=== PATIENT | male | born 1945 | race Caucasian/White ===

== ENCOUNTER 2017-09-13 14:30 | Emergency (ER) | payer MEDICARE ==
[2017-09-13 15:35] LABS: #Monocytes 0.9 thou/uL (0.11-0.59); #Neutrophils 9.1 thou/uL (1.40-6.50); %Basophils 0.1 % (0.0-1.0); %Eosinophils 0.4 % (0.0-10.0); %Lymphocytes 16.4 % (21.0-51.0); %Monocytes 7.7 % (0.0-10.0); Hematocrit 46.8 % (42.0-52.0); Mean Platelet Volume 7.2 fL (7.4-10.4); Red Blood Cell (RBC) Count 4.89 mill/uL (4.70-6.10)
[2017-09-13 15:43] LABS: ALT (SGPT) 22 U/L (8-55); AST (SGOT) 20 U/L (5-34); Alkaline Phosphatase 43 U/L (40-150); Anion Gap 12 mmol/L (10-20); BUN (Urea Nitrogen) 25 mg/dL (8.4-25.7); Bilirubin, Total 0.5 mg/dL (0.2-1.2); Calc. Creatinine Clearance 0 mL/min (70-130); Carbon Dioxide 25 mmol/L (23-31); Chloride 105 mmol/L (98-107); Estimated GFR-MDRD 72; Globulin 2.9 g/dL (2.4-3.5); Protein, Total 7.2 g/dL (5.8-8.1)
[2017-09-13 15:48] LABS: Troponin I Less than 0.010 ng/mL (< 0.028)
== END 2017-09-13 17:57 | disposition home or self-care (01) ==
LOC: ERS 14:30
DX: I48.91 Unspecified atrial fibrillation (principal); I10 Essential (primary) hypertension; Z79.899 Other long term (current) drug therapy; Z79.82 Long term (current) use of aspirin
CPT/HCPCS: 80053; 82553; 84484; 85025; 93005; 96374

== ENCOUNTER 2017-09-14 15:37 | Outpatient (CLI) | payer MEDICARE | END 2017-09-14 15:38 | disposition home or self-care (01) | LOC: LABBT 15:37 | PROVIDERS: ATTEND Internal Medicine Cardiovascular Disease | DX: I48.0 Paroxysmal atrial fibrillation (principal) ==

== ENCOUNTER → 2017-09-15 | Day surgery (SDC) | payer MEDICARE ==
[2017-09-14 15:46] VITALS: BMI 31.4
[~2017-09-15] MED LIST: Lidocaine 1% PF 5 ML VIAL ONE; Propofol 1,000 MG/100 ML VIAL IV ONE; Propofol 200 MG/20 ML VIAL ONE
--- NOTE | 2017-09-15 08:10 | OP ---
INDICATION FOR PROCEDURE: A 72-year-old patient with intermittent atrial fibrillation who presented to the office yesterday with symptomatic atrial fibrillation. He had just started the atrial fibrill ation less than 24 hours prior to being seen in the office. He was started on Eliquis and was advise d to undergo an early cardioversion of his atrial fibrillation back to sinus rhythm. He was taken to the recovery area where he underwent short acting propofol and underwent successful cardioversion of the atrial fibrillation back to normal sinus rhythm with the heart rate in the 40s-50s, which is nor mal for this gentleman. Normally, he has a slow heart rate at home. There were no complications or difficulties encountered. With one attempt at 200 joules, he was successfully cardioverted back to n ormal sinus rhythm.
--- NOTE | 2017-09-15 10:23 | DIS ---
This is an outpatient procedure for electrical cardioversion of atrial fibrillation. OTHER DIAGNOSES: Include hypercholesterolemia, hypertension. DISCHARGE DIAGNOSES: Include hypercholesterolemia, hypertension. PROCEDURE: Electrical cardioversion of atrial fibrillation back to sinus rhythm. DISCHARGE MEDICATIONS: Include Eliquis 5 mg b.i.d., aspirin 81 mg daily, Spirulina 300 mg daily, dic lofenac sodium gel 4 grams 3 times daily, doxycycline 100 mg b.i.d., Multaq 400 mg b.i.d., Flonase na haylee spray as needed, glucosamine capsules 2 capsules daily, methylprednisolone 4 mg as directed from previous medications, daily multivitamins, Naprosyn as needed, saw palmetto and Zocor 10 mg q.p.m. FOLLOWUP: His followup will be with me in 4-5 days in the office and he will maintain sinus rhythm. He will follow up with Dr. Justen Hameed as his usual routine. PROCEDURE IN HOSPITAL: Electrical cardioversion of atrial fibrillation back to sinus rhythm. HOSPITAL COURSE: This is a very pleasant gentleman who presented to the office yesterday. He actual ly presented to the emergency room the day before and was found to be in atrial fibrillation with rap id ventricular response. He was seen in the office the following day continued to be in atrial fibri llation. He had been on Multaq. Recently, he has had an upper respiratory tract infection and has b een on steroids as well as doxycycline and has also been taking nonsteroidals and he was back in atri al fibrillation, the rate was in the 60s-70s, was well controlled; however, earlier he has had increa sed heart rate in the emergency room. He was given diltiazem for good rate control. Actually in the office, his heart rate was in the 80s. Normally his heart rate is in the 40s-50s at home. He did not have tachycardia in the past. He is still with the atrial fibrillation. He is very aware when t he atrial fibrillation started, even the early onset and also he has symptomatic problems with the at rial fibrillation and not feeling very well. He was advised to undergo electrical cardioversion lucas ier. He is anxious, low risk CHADS 2 score, level 1 or 2 and he had been started on Eliquis in the o ffice just to decrease the risk of embolic phenomena and once he was converted back to sinus rhythm, he was taken to the lab today to the outpatient procedure and he underwent electrical cardioversion o f the atrial fibrillation in one attempt at 200 joules without complications or difficulties. At the end of the procedure, his heart rate was in the 50s and shows sinus rhythm. If he remains stable, h e will be discharged home in the next 1-2 hours and I will see him back in the office early next week and treatment remains maintaining sinus rhythm. We will also consider electrophysiological consulta tion for possible ablation of the atrial fibrillation.
== END ==
LOC: CCL 05:51
PROVIDERS: ATTEND Internal Medicine Cardiovascular Disease
DX: I48.91 Unspecified atrial fibrillation (principal); I25.10 Atherosclerotic heart disease of native coronary artery without angina pectoris; E78.5 Hyperlipidemia, unspecified; I10 Essential (primary) hypertension; Z79.01 Long term (current) use of anticoagulants; Z79.899 Other long term (current) drug therapy; Z90.49 Acquired absence of other specified parts of digestive tract; Z98.890 Other specified postprocedural states
CPT/HCPCS: 92960; J2001; J2704

== ENCOUNTER 2017-11-02 09:34 | Outpatient (CLI) | payer MEDICARE ==
[~2017-11-02 09:34] MED LIST changes: +Iopamidol 370 76% 100 ML VIAL ONE; -Lidocaine 1% PF 5 ML VIAL ONE; -Propofol 1,000 MG/100 ML VIAL IV ONE; -Propofol 200 MG/20 ML VIAL ONE
--- NOTE | 2017-11-02 11:31 | CT ---
LIMITED CT CHEST WITHOUT CONTRAST LIMITED CT ANGIO CHEST WITH IV CONTRAST AND 3D POSTPROCESSING: HISTORY: Shortness of breath, atrial fibrillation. PROCEDURE: Evaluation for ablation. FINDINGS: The cardiac and coronary parts of the exam have been interpreted by the association executive. Please see car diologist's report. There are vascular calcifications without aneurysmal dilatation of the thoracic aorta. No pleural or pericardial effusions are seen. There is small area of focal patchy consolidation in the left lung base anteriorly. The possibility of this representing pneumonia cannot be excluded. There are degenerative changes in the spine. POS: [facility]
== END 2017-11-02 09:35 | disposition home or self-care (01) ==
LOC: CT 09:34
PROVIDERS: ATTEND Internal Medicine Cardiovascular Disease
DX: I48.0 Paroxysmal atrial fibrillation (principal)
CPT/HCPCS: 71275; 82565

== ENCOUNTER 2017-11-06 05:54 | Observation (INO) | payer MEDICARE ==
[2017-11-06] MEDS ORDERED: Diprivan 20 ML ONE (06:39)
[2017-11-06] MEDS ORDERED: Fentanyl 100 MCG/2 ML VIAL ONE ×2 (06:39→12:32)
[2017-11-06] MEDS ORDERED: Propofol 500 MG/50 ML VIAL ONE (06:39)
[2017-11-06 07:42] LABS: #Eosinphils 0.4 thou/uL (0.0-0.7); #Lymphocytes 1.4 thou/uL (1.20-3.40); #Monocytes 0.6 thou/uL (0.11-0.59); #Neutrophils 3.5 thou/uL (1.40-6.50); %Basophils 0.6 % (0.0-1.0); %Eosinophils 6.2 % (0.0-10.0); %Lymphocytes 24.4 % (21.0-51.0); %Monocytes 9.4 % (0.0-10.0); %Neutrophils 59.5 % (42.0-75.0); Hemoglobin 14.8 g/dL (14.0-18.0); Mean Corpuscular HGB CONC 33.6 g/dL (32.0-36.0); Mean Corpuscular Hemoglobin 31.8 pg (27.0-31.0); Mean Corpuscular Volume 94.8 fl (80.0-94.0); Mean Platelet Volume 7.4 fL (7.4-10.4); Platelet Count 251 thou/uL (130-400); RBC Distribution Width 12.4 % (11.5-14.5); Red Blood Cell (RBC) Count 4.64 mill/uL (4.70-6.10); White Blood Cell (WBC) Count 5.9 thou/uL (4.8-10.8)
[2017-11-06 07:59] LABS: PTT 32.1 SEC (22.9-36.1); Prothrombin Time 13.7 SEC (12.0-14.7)
[2017-11-06 08:07] LABS: Anion Gap 14 mmol/L (10-20); BUN (Urea Nitrogen) 29 mg/dL (8.4-25.7); Calc. Creatinine Clearance 96 mL/min (70-130); Calcium 9.4 mg/dL (7.8-10.44); Carbon Dioxide 23 mmol/L (23-31); Chloride 106 mmol/L (98-107); Estimated GFR-MDRD 72; Glucose 96 mg/dL (83-110); Potassium 4.2 mmol/L (3.5-5.1); Sodium 139 mmol/L (136-145)
[2017-11-06] MEDS ORDERED: Heparin 10,000 UNITS/1 ML VIAL ONE ×2 (09:21→11:42)
[2017-11-06] MEDS ORDERED: Isoproterenol 0.2 MG/1 ML AMP ONE (11:01)
[2017-11-06] MEDS ORDERED: Heparin 25,000 units/D5W 500 ML ONE (11:42)
[2017-11-06] MEDS ORDERED: Promethazine HCl 25 MG/ML VIAL SLOW IVP PRN (13:58)
[2017-11-06] MEDS ORDERED: Meperidine HCl/PF 25 MG/ML VIAL SLOW IVP PRN (13:58)
[2017-11-06] MEDS ORDERED: Ondansetron HCl/PF 4 MG/2 ML Vial IVP PRN ×2 (13:58→17:41)
[2017-11-06] MEDS ORDERED: Protamine Sulfate 50 MG/5 ML VIAL ONE (14:05)
[2017-11-06] MEDS ORDERED: Furosemide 40 MG/4 ML VIAL ONE (14:11)
--- NOTE | 2017-11-06 15:21 | OP ---
DATE OF PROCEDURE: 11/06/2017 PROCEDURE: Atrial fibrillation ablation. REFERRING PHYSICIAN: Dr. Cyndy Carvalho REASON FOR PROCEDURE: Mr. Doll is a 72-year-old male with prior history of paroxysmal atrial fibrillation, previously on Multaq, now had recurrences and required cardioversion on 09/15/2017, he is here. He is at normal LV function. Otherwise, he is anticoagulated with Eliquis adequately. He is here for pulmonary venous ablation procedure. PROCEDURE: The patient received deep sedation by Anesthesia specialist. After adequate level of sedation achieved and the left and right femoral venous area was prepped, draped and anesthetized using subcutaneous lidocaine under ultrasound guidance, the left and right femoral veins were cannulated and an 11 [place] sheath was introduced into the left femoral vein. Through this, an ice catheter was advanced to the right atrium, transseptal and hemodynamic monitoring. Via a long sheath a duodeca cahteter was advanced from the left femoral vein to cannulate the CS and the right atrium. Following that the right femoral vein was cannulated with the help of SL-1 catheter transseptal puncture was performed under hemodynamic monitoring. Heparin was used throughout to keep ACT over 350. After the case Over a wire, the SL-1 after transseptal was exchanged for a Agilis sheath and SL -1 was used for a second transseptal catheterization. Following that a dual Decapolar Lasso catheter was advanced to the left atrium and a Thermodilution SmartTouch catheter was also used for ablation. A 3D mapping of the left atrium obtained and pulmonary venous isolation was performed with the ablation catheter. Following that, after isuprel was used and no recurrences of conduction ascertained. Following that, the basic EP study was performed, demonstrating central retrograde VA conduction with VA Wenckebach was obtained at 400 milliseconds. Central retrograde VA conduction was seen, no accessory pathway was documented, antegrade conduction block was achieved. No dual AV tg physiology was seen. Burst pacing did reinduce atrial fibrillation. Additional lines at the roof and the base of the posterior wall were placed. Pt remained in atrial fibrillation. The base of the ;left atrium was also ablated. eventually thre atrial fib was cardioverted after 150mg of amiodarone also given. Patient remained in sinus rhythm after. A total of 41 lesions were delivered with total RF time if 19.7minutes. At the end of the case no pericardial effusion documented with ICE catheter. CONCLUSION: 1. Successful pulmonary venous isolation procedure. 2. Normal AV Conduction, no evidence of dual AV tg physiology or accessory pathway. Plan routine Postop care and follow up. YIFAND
[2017-11-06] MEDS ORDERED: PHENYLEPHRINE-NS 100 MCG/ML 10 ML SYRINGE ONE (16:43)
[2017-11-06] MEDS ORDERED: Propofol 200 MG/20 ML VIAL ONE (16:43)
[2017-11-06] MEDS ORDERED: Dexamethasone 20 MG/5 ML VIAL ONE (16:43)
[2017-11-06] MEDS ORDERED: Ondansetron HCl/PF 4 MG/2 ML Vial ONE (16:43)
[2017-11-06] MEDS ORDERED: Protamine Sulfate 250 MG/25 ML VIAL ONE (16:43)
[2017-11-06] MEDS ORDERED: Lidocaine 1% PF 5 ML VIAL ONE (16:43)
[2017-11-06] MEDS ORDERED: Glycopyrrolate 0.2 MG/ML 5 ML SYRINGE ONE (16:43)
[2017-11-06] MEDS ORDERED: Heparin 30,000 units/30 ml VIAL ONE (16:43)
[2017-11-06] MEDS ORDERED: Morphine 4 MG/ML VIAL ONE ×2 (17:09→20:16)
[2017-11-06] MEDS ORDERED: Bisacodyl 5 MG TAB PO PRN (17:41)
[2017-11-06] MEDS ORDERED: Temazepam 15 MG CAP PO PRN (17:41)
[2017-11-06] MEDS ORDERED: Silver Sulfadiazine 1% Cream 50 GM JAR TOP PRN (17:41)
[2017-11-06] MEDS ORDERED: Acetaminophen 325 MG TAB PO PRN (17:41)
[2017-11-06] MEDS ORDERED: Bisacodyl 10 MG SUPP PR PRN (17:41)
[2017-11-06] MEDS ORDERED: traMADol HCl 50 MG TAB PO PRN (17:41)
[2017-11-06] MEDS ORDERED: Mag-Al 1200 mg/1200 mg/30 ML UDCUP PO PRN (17:41)
[2017-11-06] MEDS ORDERED: Nitroglycerin 0.4 MG TAB (25 Tab Bottle) SL PRN (17:41)
[2017-11-06] MEDS ORDERED: diphenhydrAMINE 25 MG CAP PO PRN (17:41)
[2017-11-06] MEDS ORDERED: VOLTAREN TOP PRN (17:45)
[2017-11-06] MEDS ORDERED: SALONPAS TOP PRN (17:48)
[2017-11-06] MEDS ORDERED: Morphine 4 MG/ML VIAL SLOW IVP PRN (17:58)
[2017-11-06] MEDS ORDERED: Morphine 4 MG/ML VIAL SLOW IVP SCH ×2 (18:00)
[2017-11-06] MEDS ORDERED: Lidocaine 2% Jelly 5 ML TUBE ONE (20:05)
[2017-11-06] MEDS ORDERED: Simvastatin 20 MG TAB PO SCH (21:00)
[2017-11-06] MEDS ORDERED: Apixaban 5 MG TAB PO SCH ×2 (21:00)
[2017-11-06] MEDS ORDERED: SAW PALMETTO FRUIT PO SCH (21:00)
[2017-11-06 22:20] VITALS: BMI 33.1
[2017-11-06] MEDS ORDERED: Docusate 100 MG CAP PO SCH (22:30)
[2017-11-06] MEDS ORDERED: Tamsulosin HCl 0.4 MG CAP PO SCH (22:30)
[2017-11-06] MEDS: Fluticasone Propionate Nasal Spray 16 gm Bottle NASAL SCH (23:55)
[2017-11-06] MEDS: Azelastine 137 MCG/Spray 30 ML NS SCH (23:55)
[2017-11-07 08:07] LABS: #Lymphocytes 1.4 thou/uL (1.20-3.40); #Monocytes 1.1 thou/uL (0.11-0.59); #Neutrophils 9.8 thou/uL (1.40-6.50); %Basophils 0.1 % (0.0-1.0); %Eosinophils 0.3 % (0.0-10.0); %Lymphocytes 11.1 % (21.0-51.0); %Monocytes 8.8 % (0.0-10.0); %Neutrophils 79.7 % (42.0-75.0); Hemoglobin 13.8 g/dL (14.0-18.0); Mean Corpuscular HGB CONC 33.2 g/dL (32.0-36.0); Mean Corpuscular Hemoglobin 31.5 pg (27.0-31.0); Mean Corpuscular Volume 95.1 fl (80.0-94.0); Mean Platelet Volume 7.1 fL (7.4-10.4); Platelet Count 233 thou/uL (130-400); RBC Distribution Width 12.4 % (11.5-14.5); Red Blood Cell (RBC) Count 4.37 mill/uL (4.70-6.10); White Blood Cell (WBC) Count 12.2 thou/uL (4.8-10.8)
--- NOTE | 2017-11-07 08:22 | ULT ---
RENAL SONOGRAM: History: Hematuria. FINDINGS: The right kidney is 11.3 cm in length and the left 11.1 cm. Each has a normal sonographic appearance without evidence of mass, stone, or hydronephrosis. Urinary bladder is decompressed by a Liriano cathet er. IMPRESSION: 1. No significant abnormalities are demonstrated. POS: [facility]
[2017-11-07] MEDS ORDERED: Multivit, Therapeutic 1 TAB PO SCH (09:00)
[2017-11-07] MEDS ORDERED: Naproxen 500 MG TAB PO SCH (09:00)
[2017-11-07] MEDS ORDERED: GLUCOSAMINE COMPLEX PO SCH (09:00)
[2017-11-07] MEDS ORDERED: Tamsulosin HCl 0.4 MG CAP PO SCH (09:00)
[2017-11-07] MEDS ORDERED: Aspirin 81 mg Enteric Coated Tablet PO SCH (09:00)
[2017-11-07] MEDS ORDERED: SPIRULINA PO SCH (09:00)
[2017-11-07] MEDS ORDERED: Docusate 100 MG CAP PO SCH (09:00)
[2017-11-07] MEDS ORDERED: Loratadine 10 MG TAB PO SCH (09:00)
[2017-11-07] MEDS ORDERED: Furosemide 20 MG/2 ML VIAL SLOW IVP PRN (09:29)
[2017-11-07] MEDS ORDERED: Potassium Chloride 20 MEQ TAB PO PRN (09:30)
[2017-11-07] MEDS: Azelastine 137 MCG/Spray 30 ML NS SCH (09:46)
[2017-11-07] MEDS: Fluticasone Propionate Nasal Spray 16 gm Bottle NASAL SCH (09:48)
[2017-11-07] MEDS: Apixaban 5 MG TAB PO SCH ×2 (11:41→13:54)
[2017-11-07 12:46] VITALS: BP 140/67; TEMP 98.4
[2017-11-07 13:49] LABS: Bacteria/HPF 2+ HPF (None Seen); Hyaline Casts/LPF NONE SEEN LPF (0-3 Hyaline); RBC/HPF GREATER THAN 50-TNTC HPF (0-3); Squamous Epithelial 0-3 HPF (0-3)
[2017-11-07] MEDS ORDERED: Furosemide 20 MG TAB PO PRN (14:15)
--- NOTE | 2017-11-07 15:04 | CON ---
DATE OF CONSULTATION: 11/07/2017 REASON FOR CONSULTATION: Consultation was requested for hematuria and urinary retention. HISTORY OF PRESENT ILLNESS: The patient is a 72-year-old male who is not previously followed by urologist, but did have difficulty with what sounds like standard BPH symptoms and was on saw palmetto and tamsulosin prior to admission. He had no episodes of retention, no urinary tract infections, no stones and no hematuria prior to this episode. He was undergoing a cardiac ablation procedure and had an indwelling catheter that was noted to have hematuria. It was removed after the procedure and he was unable to void and was scanned for greater than a liter. The catheter was put back in. The nurse did have to use a coude after a regular catheter failed. PAST MEDICAL HISTORY: Atrial fibrillation, hypertension, high cholesterol, coronary artery disease and cervical disk disease. He also had melanoma which was surgically excised from his back approximately 3-4 years ago. PAST SURGICAL HISTORY: Significant for appendix, tonsils and the melanoma. ALLERGIES: None. SOCIAL HISTORY: He does not drink, smoke or use drugs and he has no past history of smoking. MEDICATIONS: Glucosamine chondroitin, multivitamin, simvastatin, Multaq 400 mg twice a day, aspirin daily, Saw Gruetli Laager, Flomax once a day, Mucinex as needed, Flonase as needed, Voltaren transdermal, Eliquis 5 mg, Zyrtec and naproxen 250 b.i.d. REVIEW OF SYSTEMS: Reveals he has some peripheral neuropathy and neck pain secondary to cervical disk issues. He has been screened with a PSA for prostate cancer, but not a digital rectal exam. He had a colonoscopy in 2013 that showed polyps. He gets these every 5 years. He has not been constipated up until this stay. He has no chest pain or shortness of breath or cough. FAMILY HISTORY: Significant for dad dying of stroke in his 80s. Mom of a stroke close to 90. Brother is still alive at 75. Brother also had melanoma as well as prostate cancer which was already treated. PHYSICAL EXAMINATION: VITAL SIGNS: Temperature 99.1, heart rate 57, blood pressure 120/60, satting 94 % on room air. GENERAL: He is alert and oriented and appropriate and in no distress. HEENT: No scleral icterus. NECK: No obvious JVD. CARDIOVASCULAR: Regular rate and rhythm. There was a systolic ejection murmur noted. LUNGS: Clear to auscultation bilaterally. ABDOMEN: Soft, nondistended, nontender. : He was circumcised with a Liriano in place. His testes are descended bilaterally without masses. RECTAL: Digital rectal exam shows an enlarged prostate, smooth and symmetric without nodules or induration. EXTREMITIES: He had no obvious lower extremity edema. Liriano catheter was draining yellow urine in the tubing. LABORATORY DATA: CBC was within normal limits. BUN and creatinine were 29 and 1.02. I do not have any PSAs and there was no urinalysis noted. There was no imaging to review of the kidneys, so I ordered a renal ultrasound. This was reviewed personally; it revealed no stones, hydronephrosis or masses. The bladder was also imaged in one portion and revealed that it was decompressed without any obvious masses or clots. ASSESSMENT AND PLAN: 72-year-old male with benign prostatic hypertrophy and hematuria, most likely related to this; however, he still does need to have a cystoscopy to complete the workup. This can be done as an outpatient. Based on his bladder distention to over 1300, once the catheter was finally placed, I would leave it in at least 48 hours. We discussed this versus leaving it in a week and ultimately will remove it as an outpatient at about 60 hours after it was placed which would be . I reviewed this with him and his and the nurse and she will instruct them on how to do that himself. If there is any concern regarding emptying, he can follow up in the office to determine that or have the catheter replaced. Otherwise, he should follow up in the office for Uroflow and cystoscopy. He should continue the tamsulosin, but increase this to twice a day. He can continue the Saw Gruetli Laager, but we discussed I would probably ultimately change this to finasteride based on our future findings in the office. I spoke with Dr. Xavier in detail regarding the gross hematuria and his Eliquis. His standard of care would to be on this for the next 3 months continuously. We discussed how since the urine is currently clear, will get back on this for now and watch the urine carefully. He should avoid any heavy lifting or straining over the next week and ensure no catheter trauma. I will work to get this out sooner than later () with the hopes that he will be able to void by then. I called the patient back and relayed this information as well (after speaking with Dr. Xavier). PETER
[2017-11-07] MEDS ORDERED: Ciprofloxacin 500 MG TAB PO SCH (21:00)
--- NOTE | 2017-11-08 06:52 | DIS ---
ADMITTING DIAGNOSIS: Paroxysmal atrial fibrillation. REASON FOR HOSPITALIZATION: Mr. Doll was initially admitted on 11/06/2017 with the diagnosis of symptomatic paroxysmal atrial fibrillation. He has previously failed antiarrhythmic drug therapy with Multaq and previous cardioversions. He has been maintained on Eliquis for anticoagulation therapy. Despite antiarrhythmic drug therapy, he continued to have symptoms of palpitations, fatigue and tiredness. Today, he is here for this hospitalization. During this hospitalization, he underwent pulmonary venous antral isolation. Post-ablation, the patient has recovered well and did not have any problems post-procedure with the exception of some hematuria. Urology consult was done given the patient's urinary retention and hematuria. A Liriano catheter was placed. The patient will discharge home with and follow up with Urology for further instructions and removal later this week. At this time, the patient has not had any recurrence, bleeding or hematuria. He has had some external bleeding from the tip of his penis which is more likely just related to irritation and positioning of the catheter. Since ablation, the patient has had no recurrence of atrial fibrillation. On monitor, it is documented that he does have fairly frequent PACs and some ectopy, but no atrial fibrillation, and rates have been well controlled. The patient has not had any recurrence of palpitations, but does feel somewhat tired and fatigued post-procedure. DISCHARGE INSTRUCTIONS: Discharge instructions are on the computer. The patient is not to lift more than 10 pounds for 1 week and then has no activity restrictions. No soaking baths for 1 week. Groin access sites are stable and without hematoma. Instructions were given in the patient regarding monitoring for hematoma development. The discharge med rec has been completed. The patient was then given prescriptions for Lasix, potassium, ciprofloxacin for UTI for 3 days, Carafate and Protonix. The patient is to resume his Eliquis on full dose therapy immediately and monitor for additional signs of bleeding. This was discussed with the patient and his , both verbalized understanding and agreed with the plan. At this time, the patient will stop his Multaq for antiarrhythmic therapy and will follow up at the [facility] in 4-6 weeks. The patient is being discharged home in stable condition. Other than the urinary retention and hematuria immediately Postoperatively, the patient has not had any complications during his recovery. He has been up ambulating in the springer without event and generally is feeling well. DISCHARGE MEDICATION LIST: Includes Eliquis 5 mg p.o. b.i.d., aspirin 81 mg p.o. daily, Blue-Green Algae 500 mg taken at home, cetirizine 10 mg daily as needed for allergies, ciprofloxacin 500 mg p.o. b.i.d. x3 days for urinary tract infection, diclofenac sodium (Voltaren gel) 100-gram tube 4 grams TP t.i.d., fluticasone propionate 1 spray per naris b.i.d.; furosemide 20 mg p.o. 1 tab daily as needed for swelling or fluid retention including shortness of breath; glucosamine chondroitin 2 tabs p.o. b.i.d., Salonpas patch as needed, multivitamin daily, naproxen daily as needed, potassium chloride 20 mEq 1 tab daily as needed when taken with Lasix and also as directed prehospitalization, simvastatin 10 mg p.o. at bedtime, tamsulosin 0.4 mg p.o. daily, Protonix 40 mg p.o. daily for 1 month, and Carafate 1 gram p.o. q.6 hours x14 days. I was present at the time of discharge, examined the patient and agree wityh the plan. Dictated by BERT Magallon
== END 2017-11-07 15:38 | disposition home or self-care (01) ==
LOC: CCL 05:54 → 2SW 18:49 → CCL 22:47 → 2SW 22:47
PROVIDERS: ADMIT Internal Medicine Cardiovascular Disease; ATTEND Internal Medicine Cardiovascular Disease
DX: I48.0 Paroxysmal atrial fibrillation (principal); N40.0 Benign prostatic hyperplasia without lower urinary tract symptoms; I10 Essential (primary) hypertension; E78.00 Pure hypercholesterolemia, unspecified; I25.10 Atherosclerotic heart disease of native coronary artery without angina pectoris; M50.90 Cervical disc disorder, unspecified, unspecified cervical region; G62.9 Polyneuropathy, unspecified; Z85.820 Personal history of malignant melanoma of skin; Z86.010 Personal history of colon polyps; Z82.3 Family history of stroke; Z80.42 Family history of malignant neoplasm of prostate; Z79.01 Long term (current) use of anticoagulants; Z79.82 Long term (current) use of aspirin; Z79.899 Other long term (current) drug therapy; Z90.49 Acquired absence of other specified parts of digestive tract; Z90.89 Acquired absence of other organs; Z98.890 Other specified postprocedural states
CPT/HCPCS: 76770; 76942; 80048; 81015; 85025 ×2; 85347 ×2; 85610; 85730; 87086; 93005 ×2; 93613; 93622; 93623; 93656; 93662; C1730; C1731; C1732; C1759; C1769; G0378; 36415; 93010; J0282; J1100; J1644; J1940; J2001; J2270; J2405; J2704; J2720; J3010

== ENCOUNTER 2018-08-14 12:58 | Emergency (ER) | payer MEDICARE ==
[2018-08-14] MEDS ORDERED: Adenosine 6 MG/2 ML VIAL ONE (13:13)
[2018-08-14 13:40] LABS: #Basophils 0.1 thou/uL (0.0-0.2); #Eosinphils 0.3 thou/uL (0.0-0.7); #Lymphocytes 1.4 thou/uL (1.20-3.40); #Monocytes 0.5 thou/uL (0.11-0.59); #Neutrophils 4.9 thou/uL (1.40-6.50); %Basophils 0.9 % (0.0-1.0); %Eosinophils 3.6 % (0.0-10.0); %Lymphocytes 19.8 % (21.0-51.0); %Monocytes 7.3 % (0.0-10.0); %Neutrophils 68.3 % (42.0-75.0); Hemoglobin 14.9 g/dL (14.0-18.0); Mean Corpuscular HGB CONC 31.4 g/dL (32.0-36.0); Mean Corpuscular Hemoglobin 29.5 pg (27.0-31.0); Mean Corpuscular Volume 94.1 fL (78.0-98.0); Mean Platelet Volume 7.6 fL (7.4-10.4); Platelet Count 285 thou/uL (130-400); RBC Distribution Width 12.2 % (11.5-14.5); Red Blood Cell (RBC) Count 5.05 mill/uL (4.70-6.10); White Blood Cell (WBC) Count 7.2 thou/uL (4.8-10.8)
[2018-08-14 13:56] LABS: CKMB 2.2 ng/mL (0-6.6); Troponin I 0.019 ng/mL (< 0.028)
[2018-08-14 14:00] LABS: ALT (SGPT) 14 U/L (8-55); AST (SGOT) 15 U/L (5-34); Albumin 4.2 g/dL (3.4-4.8); Alkaline Phosphatase 38 U/L (40-150); Anion Gap 16 mmol/L (10-20); BUN (Urea Nitrogen) 20 mg/dL (8.4-25.7); Bilirubin, Total 0.6 mg/dL (0.2-1.2); CK (CPK) 71 U/L (30-200); Calc. Creatinine Clearance 0 mL/min (70-130); Calcium 8.8 mg/dL (7.8-10.44); Carbon Dioxide 18 mmol/L (23-31); Chloride 108 mmol/L (98-107); Estimated GFR-MDRD 53; Globulin 2.7 g/dL (2.4-3.5); Glucose 136 mg/dL (83-110); Lipase 32 U/L (8-78); Potassium 4.5 mmol/L (3.5-5.1); Protein, Total 6.9 g/dL (5.8-8.1); Sodium 137 mmol/L (136-145)
--- NOTE | 2018-08-14 14:10 | RAD ---
ONE VIEW CHEST: History: Chest pain Comparison: None FINDINGS: Lungs are clear. No pneumothorax or effusion. Cardiac silhouette and mediastinal contours are within normal limits. Degenerative disease left shoulder. IMPRESSION: No acute intrathoracic abnormality. No significant change. POS: [facility]
== END 2018-08-14 16:05 | disposition home or self-care (01) ==
LOC: ERS 12:58
DX: I47.1 Supraventricular tachycardia (principal); I48.91 Unspecified atrial fibrillation; I10 Essential (primary) hypertension
CPT/HCPCS: 36415; 71045; 80053; 82553; 83690; 84484; 85025; 93005; 94760; 96361; 96374; 96375; 96376; J0153

== ENCOUNTER 2018-11-18 15:31 | Inpatient (IN) | payer MEDICARE ==
[2018-11-18 16:01] LABS: #Lymphocytes 0.7 thou/uL (1.20-3.40); #Monocytes 0.4 thou/uL (0.11-0.59); #Neutrophils 8.9 thou/uL (1.40-6.50); %Eosinophils 0.3 % (0.0-10.0); %Monocytes 4.4 % (0.0-10.0); %Neutrophils 88.4 % (42.0-75.0); Hemoglobin 14.9 g/dL (14.0-18.0); Mean Corpuscular HGB CONC 34.2 g/dL (32.0-36.0); Mean Corpuscular Hemoglobin 32.1 pg (27.0-31.0); Mean Corpuscular Volume 93.8 fL (78.0-98.0); Mean Platelet Volume 7.4 fL (7.4-10.4); Platelet Count 280 thou/uL (130-400); Red Blood Cell (RBC) Count 4.62 mill/uL (4.70-6.10); White Blood Cell (WBC) Count 10.1 thou/uL (4.8-10.8)
--- NOTE | 2018-11-18 16:03 | RAD ---
PORTABLE AP CHEST: Date: 11/18/18 HISTORY: Patient feels as if heart is racing. COMPARISON: 08/14/18. FINDINGS: The cardiac silhouette and pulmonary vasculature are within normal limits. There is minimal linear at electasis at the left lung base. The lungs are otherwise clear. Degenerative changes are present in t he spine. There has been no interval change from the prior exam. IMPRESSION: No acute cardiopulmonary process. POS: [facility]
[2018-11-18 16:21] LABS: ALT (SGPT) 16 U/L (8-55); AST (SGOT) 17 U/L (5-34); Albumin 4.5 g/dL (3.4-4.8); Alkaline Phosphatase 49 U/L (40-150); Anion Gap 16 mmol/L (10-20); BUN (Urea Nitrogen) 25 mg/dL (8.4-25.7); Bilirubin, Total 0.5 mg/dL (0.2-1.2); Calc. Creatinine Clearance 0 mL/min (70-130); Calcium 9.5 mg/dL (7.8-10.44); Carbon Dioxide 22 mmol/L (23-31); Chloride 107 mmol/L (98-107); Estimated GFR-MDRD 50; Globulin 2.8 g/dL (2.4-3.5); Glucose 135 mg/dL (83-110); Potassium 4.4 mmol/L (3.5-5.1); Protein, Total 7.3 g/dL (5.8-8.1); Sodium 141 mmol/L (136-145)
[2018-11-18] MEDS ORDERED: Labetalol HCl 100 MG/20 ML VIAL SLOW IVP SCH (19:00)
[2018-11-18] MEDS ORDERED: Digoxin 0.5 MG/2 ML AMP ONE (19:57)
[2018-11-18] MEDS ORDERED: Apixaban 5 MG TAB PO SCH (21:30)
[2018-11-18] MEDS ORDERED: Ondansetron PF 4 MG/2 ML Vial IVP PRN (22:22)
[2018-11-18] MEDS ORDERED: Acetaminophen 325 MG TAB PO PRN (22:22)
[2018-11-18] MEDS ORDERED: Ondansetron ODT 4 MG TAB SL PRN (22:22)
[2018-11-19 01:18] VITALS: BMI 30.9
[2018-11-19] MEDS ORDERED: Fluticasone Propionate Nasal Spray 16 gm Bottle NASAL PRN ×2 (08:08→08:24)
[2018-11-19] MEDS ORDERED: Non-Formulary Item 1 EACH (Multivitamin [Daily Multiple Vitamin] 1 EACH) PO SCH (09:00)
[2018-11-19] MEDS: Apixaban 5 MG TAB PO SCH ×2 (09:27→21:10)
[2018-11-19] MEDS: Finasteride 5 MG TAB PO SCH (09:27)
[2018-11-19] MEDS: Aspirin 81 mg Enteric Coated Tablet PO SCH (09:27)
[2018-11-19] MEDS: Tamsulosin HCl 0.4 MG CAP PO SCH (09:28)
[2018-11-19] MEDS: Multivit, Therapeutic 1 TAB PO SCH (09:28)
[2018-11-19] MEDS ORDERED: Flecainide 50 MG TAB PO SCH (13:30)
--- NOTE | 2018-11-19 17:08 | CON ---
DATE OF CONSULTATION: 11/19/2018 This is an electrophysiology followup note. REFERRING PHYSICIAN: Dr. Justen Hameed. HISTORY OF PRESENT ILLNESS: I am seeing Mr. 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 His problems are: 1. Atypical atrial flutter. a. Prior history of persistent atrial fibrillation. b. Status post pulmonary venous isolation procedure in November 06, 2017 and redo ablation procedure in July 24, 2018, with re-isolation of the right superior posterior wall and right atrium and CS performed. c. Recurrent atrial arrhythmias with response to diltiazem. 2. History of baseline bradycardia versus Multaq in the past. 3. CHADS-VASc score of 3 with history of mild coronary artery disease on left heart catheterization in July 2007, but not significant lesions, also age, on Eliquis anticoagulation. 4. History of BPH. ALLERGIES: NONE. MEDICATIONS: At home included: 1. Fluticasone. 2. Simvastatin. 3. Multivitamin. 4. Eliquis 5 mg twice a day. 5. Aspirin. 6. Naproxen. 7. Tamsulosin. 8. Metoprolol succinate. 9. Diltiazem CD. 10. Finasteride. SUBJECTIVE: Mr. Doll has been doing well up overnight, started developing rapid heart rates up to 140 beats per minute noted. He did not get dizzy or did not lose consciousness. No angina noted. No fever, chills, or cough, but due to his lack of success to control his heart rate in the past, he decided to come into the ER. He was evaluated, found to be in an atrial arrhythmia, and IV diltiazem and Lopressor were given eventually that controlled this heart rate. He was subsequently admitted to the floor and I was consulted for the management. Currently, he is not having any chest pain. No fever, chills, or cough. No stroke-like symptoms. No neurological deficits. No PND or orthopnea. Rest of 12-point system otherwise unremarkable. PAST MEDICAL HISTORY: As above. SOCIAL HISTORY: The patient is smoking EtOH or drug abuse. FAMILY HISTORY: Not contributory. OBJECTIVE DATA: VITAL SIGNS: Blood pressure is 120/80, heart rate 111, respiratory rate 16, and temperature 97.7 degrees Fahrenheit. GENERAL: Alert and oriented man, in no apparent distress. NECK: Supple. Jugular veins not distended. CHEST: Coarse without crackles. HEART: Sounds are regular, but tachycardic. No murmur or gallop. ABDOMEN: Benign. Bowel sounds positive. EXTREMITIES: Lower extremities without edema, clubbing, or cyanosis. Pulses are adequate. NEUROLOGIC: The patient nonfocal. MUSCULOSKELETAL: Without joint swelling or deformity. SKIN: Without rash. DATABASE: The telemetry strips reviewed revealing atypical atrial flutter with positive deflections in V1, rates of 123 beats per minute. LABORATORY DATA: White cell count is 10.1, hemoglobin 14.9, platelet count is 280. Sodium 141, potassium 4.4, BUN is 25, and creatinine 1.39. Chest x-ray shows no acute cardiopulmonary process. ASSESSMENT AND PLAN: Mr. Doll is a very pleasant 73-year-old man with prior history of atrial arrhythmias. He underwent repeat ablation in June, but had recurrent episodes. He is back again with other recurrences of the atrial arrhythmias. We have discussed treatment options. I detailed the option for an antiarrhythmic agents and cardioversion versus redo ablation. We did discuss the potential chance for bradycardia on added antiarrhythmic agents as he had tendency for that in the past as well. At this point, he would prefer attempting medical therapy first before going for a third ablation and we will plan to start him on flecainide as he had no significant coronary artery disease is non-reasonable option, discussed pros and cons and he is willing to proceed. We will keep him without food for potential cardioversion in the morning. Chronic anticoagulation with Eliquis without interruption. Continue as is. Job ID: [id number] [id number]
[2018-11-19] MEDS ORDERED: Simvastatin 5 MG TAB PO SCH (21:00)
[2018-11-19] MEDS ORDERED: Non-Formulary Item 1 EACH (Simvastatin [Zocor] 10 MG) PO SCH (21:00)
[2018-11-19] MEDS: Flecainide 50 MG TAB PO SCH (21:08)
--- NOTE | 2018-11-20 08:20 | HP ---
CHIEF COMPLAINT: Palpitations. HISTORY OF PRESENT ILLNESS: This is a 73-year-old gentleman with a history of atrial fibrillation, atrial flutter. He has been followed by Dr. Carvalho and Dr. Xavier and Dr. Asif for Cardiology and Electrophysiology for the past several years. He has a history of two ablations on his heart to attempt to resolve his atrial dysrhythmia. For the past few years, he was last seen by electrophysiology in June of 2018 following another ablation. He had been doing well since that time. He has a recent upper respiratory infection with allergies and sinus problems, but denies taking any kind of stimulant decongestants. He was in his usual state of health this week and when yesterday at about 0145 hours he developed palpitations, which have continued. He states he exercised two days ago and heart rate got up to 133, but then resolved following that and was feeling fine when this episode occurred. His heart rate got up to 144 in the emergency department. He was given medicines including Cardizem and labetalol and his heart rate was able to come back down to the low 100s. He denies chest pain, shortness of breath, or palpitations. Denies weakness or falls or syncope. He is feeling at his baseline except for occasional episodes of palpitations at this time. PAST MEDICAL HISTORY: Atrial fibrillation, atrial flutter, BPH, hypertension, hyperlipidemia, and history of melanoma. PAST SURGICAL HISTORY: Appendectomy, tonsillectomy, and cardiac ablation x2. MEDICATIONS: Include; 1. Eliquis 5 mg b.i.d. 2. Cardizem 180 mg daily. 3. Tamsulosin 0.4 mg b.i.d. 4. Metoprolol 25 mg daily. 5. Finasteride 1 mg daily. 6. Aspirin 81 mg daily. 7. Simvastatin 10 mg daily. ALLERGIES: NO KNOWN DRUG ALLERGIES. SOCIAL HISTORY: He is . 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 Lives at home with his . FAMILY HISTORY: Father with CVA in his 80s. No other heart disease. IMMUNIZATIONS: Up-to-date. REVIEW OF SYSTEMS: As per the history of present illness. GENERAL: He denies any recent fevers or chills. He has had a recent upper respiratory infection. HEENT: No headache or visual changes. Chronic rhinitis, due to his allergies. CARDIAC: As per the history of present illness. PULMONARY: Denies cough, hemoptysis, or shortness of breath. GI: Denies nausea, vomiting, or abdominal pain. : Denies dysuria or hematuria. He does have a history of BPH. NEUROLOGIC: No weakness, seizures, or syncope. PHYSICAL EXAMINATION: VITAL SIGNS: Temperature 98.0, pulse of 109 to 126, respirations 16, blood pressure 125/91, and pulse ox is 95% on room air. GENERAL: He is awake and alert, in no acute distress. HEENT: Speech is clear. Mucosa is moist. NECK: Supple. HEART: Tachycardic. LUNGS: Clear. ABDOMEN: Soft. EXTREMITIES: No clubbing, cyanosis, or edema. 2+ peripheral pulses bilaterally. LABORATORY DATA: Sodium 141, potassium 4.4, chloride 107, CO2 of 22, BUN and creatinine 25 and 1.39 with a GFR of 50. Serum glucose of 135. AST and ALT are normal. Cardiac enzymes are negative. Troponin is 0.010. TSH 0.335. White blood cell count 10,000, hemoglobin and hematocrit 14.9 and 43.4, and platelets of 218. Chest x-ray showed no active disease. EKG reveals atrial flutter. Telemetry monitoring continues to be atrial flutter. ASSESSMENT AND PLAN: 1. This is a 73-year-old gentleman with a long history of atrial fibrillation, atrial flutter, now with episode of atrial flutter with rapid ventricular response. Seems to improved with medications including Cardizem and labetalol in the emergency department as well as increasing his metoprolol to 50 mg. Continues to have palpitations and his heart rate up into the 100s to 120s. We will consult Cardiology and Electrophysiology for further evaluation and possible med adjustments vs repeat ablation vs cardioversion 2. Hypertension, remained stable. We will continue current medications. 3. Hyperlipidemia. We will continue simvastatin. 4. Benign prostatic hyperplasia, stable. We will make adjustments as needed as an outpatient. Job ID: [id number] [facility]
--- NOTE | 2018-11-20 09:05 | PRG ---
DATE OF SERVICE: 11/20/2018 SUBJECTIVE: The patient is feeling well at this time. Appreciate the assistance with Electrophysiology and Cardiology. The patient states that he is not having any chest pains or shortness of breath. He did state he felt a little fatigue yesterday while walking. OBJECTIVE: VITAL SIGNS: Temperature 97.8, pulse of 99 to 104, respirations 19, blood pressure 146/89, and pulse ox is 95% on room air. GENERAL: He is awake and alert. No acute distress. Speech is clear. NECK: Supple. HEART: Regular rate and rhythm. LUNGS: Clear. ABDOMEN: Soft. EXTREMITIES: No edema. LABORATORY DATA: Reviewed. Cardiac enzymes are negative. EKG reveals atrial flutter. ASSESSMENT AND PLAN: 1. This is a 73-year-old gentleman with a history of atrial fibrillation and atrial flutter, status post ablation x2 and now admitted with atrial flutter with rapid ventricular response. Cardiology and Electrophysiology managing with plans of cardioversion today, he continued to have flecainide, metoprolol, and Eliquis for anticoagulation. 2. BPH is stable. 3. Hyperlipidemia. We will continue statin therapy. Job ID: [id number]
[2018-11-20] MEDS: Apixaban 5 MG TAB PO SCH (11:32)
[2018-11-20] MEDS: Aspirin 81 mg Enteric Coated Tablet PO SCH (11:32)
[2018-11-20] MEDS: Flecainide 50 MG TAB PO SCH (11:32)
[2018-11-20 12:05] VITALS: BP 143/92; TEMP 98.7
[2018-11-20] MEDS ORDERED: PROPOFOL 200 MG/20 ML VIAL ONE (15:48)
[2018-11-20] MEDS ORDERED: PROPOFOL 20 ML ONE (17:07)
[2018-11-20] MEDS: Finasteride 5 MG TAB PO SCH (17:32)
[2018-11-20] MEDS: Multivit, Therapeutic 1 TAB PO SCH (17:33)
[2018-11-20] MEDS: Tamsulosin HCl 0.4 MG CAP PO SCH (17:33)
--- NOTE | 2018-11-21 00:29 | OP ---
DATE OF PROCEDURE: 11/20/2018 This is an electrical cardioversion report. REASON FOR PROCEDURE: Mr. Doll is a 73-year-old man with prior history of atrial arrhythmias, prior atrial fibrillation ablation, now has sustained atypical atrial flutter with rapid rates, here for a planned cardioversion. The patient has been chronically anticoagulated with Eliquis without fail. DESCRIPTION OF PROCEDURE: The patient received propofol by Anesthesia specialist. After adequate level of sedation achieved, a synchronized 50 joule shock promptly converted back the patient to sinus rhythm. CONCLUSION: Successful cardioversion. PLAN: Start flecainide. Monitor rates. Consider decreasing diltiazem and metoprolol if bradycardia occurs. Also continue anticoagulation. For jail, consider left atrial ablation procedure. Job ID: [id number]
== END 2018-11-20 19:59 | disposition home or self-care (01) | DRG 310 ==
LOC: ERS 15:31 → 2SE 19:50
PROVIDERS: ADMIT Family Medicine; ATTEND Family Medicine
PROC: 5A2204Z Restoration of Cardiac Rhythm, Single (ICD-10-PCS; principal; 2018-11-18)
DX: I48.4 Atypical atrial flutter (principal); I48.1 Persistent atrial fibrillation; I25.10 Atherosclerotic heart disease of native coronary artery without angina pectoris; I10 Essential (primary) hypertension; E78.5 Hyperlipidemia, unspecified; N40.0 Benign prostatic hyperplasia without lower urinary tract symptoms; Z79.01 Long term (current) use of anticoagulants; Z79.82 Long term (current) use of aspirin
CPT/HCPCS: 71045; 80053; 84443; 84484; 85025; 92960; 93005; 93010; 96361; 96374; 96375; 96376; J1160; J2704; J3490

== ENCOUNTER 2018-12-25 09:10 | Emergency (ER) | payer MEDICARE ==
[2018-12-25 10:00] LABS: #Eosinphils 0.2 thou/uL (0.0-0.7); #Lymphocytes 1.1 thou/uL (1.20-3.40); #Monocytes 0.5 thou/uL (0.11-0.59); #Neutrophils 3.6 thou/uL (1.40-6.50); %Basophils 0.5 % (0.0-1.0); %Eosinophils 2.8 % (0.0-10.0); %Lymphocytes 20.1 % (21.0-51.0); %Monocytes 9.4 % (0.0-10.0); %Neutrophils 67.2 % (42.0-75.0); Mean Corpuscular HGB CONC 31.3 g/dL (32.0-36.0); Mean Corpuscular Hemoglobin 29.8 pg (27.0-31.0); Mean Platelet Volume 6.9 fL (7.4-10.4); Platelet Count 275 thou/uL (130-400); RBC Distribution Width 12.5 % (11.5-14.5); Red Blood Cell (RBC) Count 5.03 mill/uL (4.70-6.10); White Blood Cell (WBC) Count 5.4 thou/uL (4.8-10.8)
[2018-12-25 10:28] LABS: ALT (SGPT) 15 U/L (8-55); AST (SGOT) 16 U/L (5-34); Albumin 3.9 g/dL (3.4-4.8); Alkaline Phosphatase 41 U/L (40-150); Anion Gap 12 mmol/L (10-20); BUN (Urea Nitrogen) 22 mg/dL (8.4-25.7); Bilirubin, Total 0.5 mg/dL (0.2-1.2); Calc. Creatinine Clearance 0 mL/min (70-130); Calcium 9.1 mg/dL (7.8-10.44); Carbon Dioxide 23 mmol/L (23-31); Chloride 106 mmol/L (98-107); Estimated GFR-MDRD 66; Globulin 2.4 g/dL (2.4-3.5); Glucose 138 mg/dL (83-110); Potassium 4.1 mmol/L (3.5-5.1); Protein, Total 6.3 g/dL (5.8-8.1); Sodium 137 mmol/L (136-145)
--- NOTE | 2018-12-25 10:39 | RAD ---
SINGLE VIEW CHEST: Date: 12/25/18 COMPARISON: 11/18/18. HISTORY: Atrial fibrillation and racing heart. FINDINGS: Single view of the chest shows a normal sized cardiomediastinal silhouette. There is no evidence of c onsolidation, mass, or pleural effusion. The bones are unremarkable. IMPRESSION: No evidence of acute cardiopulmonary disease. POS: [facility]
[2018-12-25] MEDS ORDERED: Metoprolol Tartrate 50 MG TAB ONE (11:59)
--- NOTE | 2018-12-27 08:49 | CON ---
DATE OF CONSULTATION: 12/25/2018 REASON FOR CONSULTATION: Tachycardia HISTORY OF PRESENT ILLNESS: Mr. Doll is a gentleman well known to our practice with history of atrial arrhythmias. He had been in contact with our practice over the weekend and had been experiencing episodes of atrial flutter with RVR, but would eventually convert back to sinus rhythm. He remains hemodynamically stable despite being in flutter. Heart rates are generally 110-115 beats per minute. He was recently seen in our clinic. He is on low-dose flecainide 50 mg b.i.d. and has a tendency for bradycardia with even low-dose flecainide. He was on low-dose metoprolol as well which had to be weaned off as his heart rate was in the 40s. He has recently eaten food and cannot undergo cardioversion today. Overall, he feels well. He is frustrated with the recurrence, but does not feel poorly despite it being out of rhythm. PAST MEDICAL HISTORY: 1. Persistent atrial fibrillation. a. Refractory to Multaq, status post cardioversion. b. PVI on 11/06/2017, redo PVI on 07/24/2018. c. Recurrent atypical atrial flutter status post cardioversion on 11/23/2018 despite flecainide. 2. Tendency for bradycardia with any rate limiting agents. 3. CHADS-VASc score of 3, on Eliquis. 4. BPH. 5. Mild coronary artery disease by left heart catheterization in July 2007. MEDICATIONS: 1. Tylenol as needed. 2. Aspirin 81 mg daily. 3. Blue-green algae daily. 4. Flecainide 100 mg p.o. b.i.d. 5. Cetirizine as needed. 6. Chondroitin b.i.d. 7. Benadryl as needed. 8. Eliquis 5 mg b.i.d. 9. Finasteride daily. 10. Fluticasone as needed. 11. Glucosamine b.i.d. 12. Mucinex as needed. 13. Multivitamin daily. 14. Salonpas as needed. 15. Simvastatin daily. 16. Tamsulosin b.i.d. 17. Voltaren gel as needed. ALLERGIES: NONE. SOCIAL HISTORY: . Negative for alcohol, tobacco, or illicit drug use. FAMILY HISTORY: Noncontributory. REVIEW OF SYSTEMS: A 12-point review of systems is conducted and is negative except that listed above in HPI. PHYSICAL EXAMINATION: VITAL SIGNS: In the ER chart for review. GENERAL: The patient is alert, oriented. Speech is clear. Affect is appropriate. His is at bedside. He is in no apparent distress. He is resting comfortably in the bed during exam. NECK: Supple without jugular venous distention. HEART: Heart rate is regular, but rapid at 115 beats per minute. PMI is nondisplaced. LUNGS: Clear to auscultation bilaterally. ABDOMEN: Soft and nontender. EXTREMITIES: Warm and dry to touch without clubbing, cyanosis, or edema. NEUROLOGIC: Grossly intact and nonfocal. Gait was not assessed. DATABASE: EKG and telemetry show a fairly well hidden 2:1 atypical atrial flutter with many of the flutter waves hidden in the T-wave. Ventricular rate is variable between 110 and 115 beats per minute. QRS is approximately 125 milliseconds, which is stable with our prior exams with him. IMPRESSION: 1. Persistent atrial arrhythmias status post 2 prior ablations, now with a late recurrent atypical flutter with recent cardioversion and re-initiation of flecainide. 2. CHADS-VASc score of 3, on Eliquis. 3. Bradycardia with even a low-dose metoprolol and flecainide. 4. Chronic fatigue. RECOMMENDATIONS: I had a lengthy discussion with Mr. Doll and his about how to move forward. We had recently discussed with him similar treatments in clinic. There has been difficulty in keeping him controlled medically given his tendency for bradycardia. We have not been able to advance medications to suppress his arrhythmias without provoking fairly profound bradycardia with heart rates in the 30s and 40s. We discussed how occasionally we will need to use a pacemaker to prevent bradycardic issues as we manage atrial arrhythmias. He would like to refrain from this for now. We also discussed a redo ablation which he is more in favor of at this time. There is a very real possibility that even with a redo ablation, he still may remain bradycardic and require pacemaker in the near future. At this point, he is asymptomatic with his arrhythmias. He did eat today and unfortunately cannot undergo cardioversion. Recommend discharging him and our office will follow up with him today to get him scheduled for cardioversion in the near future. The patient is very agreeable with this plan. Thank you for allowing us to participate in the care of this patient. Job ID: [id number] [facility]
== END 2018-12-25 14:30 | disposition home or self-care (01) ==
LOC: ERS 09:10
DX: I48.92 Unspecified atrial flutter (principal); I10 Essential (primary) hypertension; Z79.899 Other long term (current) drug therapy; Z79.82 Long term (current) use of aspirin
CPT/HCPCS: 36415; 71045; 80053; 84484; 85025; 93005; 96360; 96361

== ENCOUNTER 2019-02-18 11:25 | Day surgery (SDC) | payer MEDICARE ==
[2019-02-14 16:58] VITALS: BMI 31.4
[~2019-02-18 11:25] MED LIST changes: -Iopamidol 370 76% 100 ML VIAL ONE; +PROPOFOL 200 MG/20 ML VIAL ONE
[2019-02-18 13:40] LABS: #Basophils 0.1 thou/uL (0.0-0.2); #Eosinphils 0.3 thou/uL (0.0-0.7); #Lymphocytes 1.4 thou/uL (1.20-3.40); #Monocytes 0.6 thou/uL (0.11-0.59); #Neutrophils 5.2 thou/uL (1.40-6.50); %Basophils 0.7 % (0.0-1.0); %Eosinophils 3.8 % (0.0-10.0); %Lymphocytes 18.9 % (21.0-51.0); %Monocytes 7.6 % (0.0-10.0); Hemoglobin 13.7 g/dL (14.0-18.0); Mean Corpuscular HGB CONC 32.9 g/dL (32.0-36.0); Mean Corpuscular Volume 94.1 fL (78.0-98.0); Mean Platelet Volume 7.4 fL (7.4-10.4); Platelet Count 272 thou/uL (130-400); RBC Distribution Width 12.1 % (11.5-14.5); Red Blood Cell (RBC) Count 4.42 mill/uL (4.70-6.10); White Blood Cell (WBC) Count 7.5 thou/uL (4.8-10.8)
[2019-02-18 13:46] LABS: INR-International Normal Ratio 1.1; PTT 34.7 SEC (22.9-36.1); Prothrombin Time 14.7 SEC (12.0-14.7)
[2019-02-18 14:06] LABS: Anion Gap 13 mmol/L (10-20); BUN (Urea Nitrogen) 17 mg/dL (8.4-25.7); Calc. Creatinine Clearance 90 mL/min (70-130); Carbon Dioxide 22 mmol/L (23-31); Chloride 107 mmol/L (98-107); Estimated GFR-MDRD 68; Glucose 97 mg/dL (83-110); Potassium 3.9 mmol/L (3.5-5.1); Sodium 138 mmol/L (136-145)
[2019-02-18] MEDS ORDERED: PROPOFOL 20 ML ONE (14:22)
--- NOTE | 2019-02-18 21:30 | OP ---
DATE OF PROCEDURE: 02/18/2019 PROCEDURE PERFORMED: Electrical external cardioversion. REASON FOR PROCEDURE: Mr. Doll is a 73-year-old man with prior history of recurrent atrial arrhythmias. He underwent two prior ablations, most recently in [address] Asif. He is here for repeat cardioversion after early recurrence of atrial arrhythmias. Currently, he is on amiodarone taper. He has been well anticoagulated without fail with apixaban. DESCRIPTION OF PROCEDURE: The patient received propofol by Anesthesia specialist. After adequate level of sedation achieved, a synchronized 50-joule shock promptly converted the patient back to sinus rhythm. Return rhythm was sinus rhythm at 64 beats per minute. The patient tolerated the procedure well. No complications noted. CONCLUSION: Successful cardioversion. PLAN: Continue apixaban and amiodarone taper as prescribed. Routine followup in the office in 4 to 6 weeks. Job ID: [id number]
--- NOTE | 2019-02-19 22:59 | EKG ---
Test Reason : PREOP Blood Pressure : / mmHG Vent. Rate : 115 BPM Atrial Rate : 047 BPM P-R Int : 000 ms QRS Dur : 092 ms QT Int : 386 ms P-R-T Axes : 000 074 007 degrees QTc Int : 533 ms Atrial fibrillation with rapid ventricular response with premature ventricular or aberrantly conducte d complexes Low voltage QRS Abnormal ECG When compared with ECG of 25-DEC-2018 10:50, (Unconfirmed) No significant change was found Confirmed by JUAN SCHWARZ ([id number]) on 02/19/2019 10:59:28 PM Referred By: ANGELA Confirmed By:JUAN SCHWARZ
--- NOTE | 2019-02-19 23:05 | EKG ---
Test Reason : POST CARDIOVERSION Blood Pressure : / mmHG Vent. Rate : 071 BPM Atrial Rate : 061 BPM P-R Int : 204 ms QRS Dur : 094 ms QT Int : 476 ms P-R-T Axes : 067 014 020 degrees QTc Int : 517 ms Sinus rhythm with occasional Premature ventricular complexes vs PAC's with aberrancy Low voltage QRS , Limb leads Prolonged QT Abnormal ECG When compared with ECG of 18-FEB-2019 13:07, (Unconfirmed) Sinus rhythm has replaced Atrial fibrillation Vent. rate has decreased BY 44 BPM Questionable change in QRS axis Confirmed by JUAN SCHWARZ ([id number]) on 02/19/2019 11:04:55 PM Referred By: [facility] Confirmed By:JUAN SCHWARZ
== END 2019-02-18 15:50 | disposition home or self-care (01) ==
LOC: SDC 11:25
PROVIDERS: ATTEND Internal Medicine Cardiovascular Disease
PROC: 5A2204Z Restoration of Cardiac Rhythm, Single (ICD-10-PCS; principal; 2019-02-18)
DX: I48.91 Unspecified atrial fibrillation (principal); Z91.040 Latex allergy status; Z79.01 Long term (current) use of anticoagulants; Z79.82 Long term (current) use of aspirin; Z79.899 Other long term (current) drug therapy
CPT/HCPCS: 80048; 85025; 85610; 85730; 92960; 93005; 93010; J2704

== ENCOUNTER 2019-02-23 13:58 | Observation (INO) | payer MEDICARE ==
[2019-02-23 14:32] LABS: #Eosinphils 0.2 thou/uL (0.0-0.7); #Monocytes 0.5 thou/uL (0.11-0.59); #Neutrophils 5.2 thou/uL (1.40-6.50); %Basophils 0.7 % (0.0-1.0); %Eosinophils 2.2 % (0.0-10.0); %Lymphocytes 14.2 % (21.0-51.0); %Monocytes 7.7 % (0.0-10.0); %Neutrophils 75.1 % (42.0-75.0); Hemoglobin 13.9 g/dL (14.0-18.0); Mean Corpuscular HGB CONC 33.1 g/dL (32.0-36.0); Mean Corpuscular Hemoglobin 30.6 pg (27.0-31.0); Mean Corpuscular Volume 92.3 fL (78.0-98.0); Mean Platelet Volume 7.1 fL (7.4-10.4); Platelet Count 288 thou/uL (130-400); RBC Distribution Width 11.9 % (11.5-14.5); Red Blood Cell (RBC) Count 4.54 mill/uL (4.70-6.10)
[2019-02-23] MEDS ORDERED: Metoprolol Tartrate 5 MG/5 ML VIAL ONE ×2 (14:33→15:23)
[2019-02-23 14:56] LABS: ALT (SGPT) 12 U/L (8-55); AST (SGOT) 16 U/L (5-34); Albumin 4.1 g/dL (3.4-4.8); Alkaline Phosphatase 50 U/L (40-150); Anion Gap 12 mmol/L (10-20); BUN (Urea Nitrogen) 22 mg/dL (8.4-25.7); Bilirubin, Total 0.7 mg/dL (0.2-1.2); CK (CPK) 129 U/L (30-200); Calc. Creatinine Clearance 0 mL/min (70-130); Calcium 9.3 mg/dL (7.8-10.44); Carbon Dioxide 24 mmol/L (23-31); Chloride 106 mmol/L (98-107); Estimated GFR-MDRD 62; Globulin 2.7 g/dL (2.4-3.5); Glucose 109 mg/dL (83-110); Magnesium 2.4 mg/dL (1.6-2.6); Potassium 4.2 mmol/L (3.5-5.1); Protein, Total 6.8 g/dL (5.8-8.1); Sodium 138 mmol/L (136-145)
--- NOTE | 2019-02-23 15:11 | RAD ---
AP CHEST: Date: 02/23/19 HISTORY: Chest pain. FINDINGS: Lungs are clear. Heart size upper normal. Vasculature upper normal. IMPRESSION: No acute findings. POS: [facility]
[2019-02-23 18:01] LABS: Troponin I 0.021 ng/mL (< 0.028)
[2019-02-23] MEDS ORDERED: Ondansetron PF 4 MG/2 ML Vial IVP PRN (18:31)
[2019-02-23] MEDS ORDERED: Ondansetron ODT 4 MG TAB SL PRN (18:31)
[2019-02-23 18:45] VITALS: BMI 31.6
[2019-02-23] MEDS ORDERED: Fluticasone Propionate Nasal Spray 16 gm Bottle NASAL PRN (19:35)
[2019-02-23] MEDS ORDERED: Simvastatin 20 MG TAB PO SCH (21:00)
[2019-02-23] MEDS: Apixaban 5 MG TAB PO SCH (21:41)
[2019-02-23] MEDS: Amiodarone 200 MG TAB PO SCH (21:41)
[2019-02-23] MEDS: Tamsulosin HCl 0.4 MG CAP PO SCH (21:42)
[2019-02-24] MEDS ORDERED: Aspirin 81 mg Enteric Coated Tablet PO SCH (09:00)
[2019-02-24] MEDS ORDERED: Multivit, Therapeutic 1 TAB PO SCH (09:00)
[2019-02-24] MEDS ORDERED: Finasteride 5 MG TAB PO SCH (09:00)
[2019-02-24] MEDS: Apixaban 5 MG TAB PO SCH (09:17)
[2019-02-24] MEDS: Amiodarone 200 MG TAB PO SCH (09:18)
[2019-02-24] MEDS: Tamsulosin HCl 0.4 MG CAP PO SCH (09:18)
[2019-02-24 09:26] LABS: Platelet Count 283 thou/uL (130-400)
[2019-02-24 12:44] VITALS: BP 98/60; TEMP 97.8
--- NOTE | 2019-02-24 16:28 | HP ---
CHIEF COMPLAINT: Rapid heart rate. HISTORY OF PRESENT ILLNESS: This is a 73-year-old male, patient of Dr. Lakhwinder Hameed, who is well known to the electrophysiology quality assurance assistant. Sees Dr. Carvalho as his regular quality assurance assistant. He noted palpitations and a racing heart after just being outside and do a simple yard work and he knew that was not right. He did have some chest pressure, pain with it, so he came into the emergency room. He was found to be in atrial fibrillation with RVR. The patient states he had an ablation just [address] Asif in [place]. Previously he had been seeing Dr. Xavier, but he was referred to Dr. Asif. He had been ablated now total of 3 times. He had previously been on metoprolol, but it was stopped about a month or so ago. PAST MEDICAL HISTORY: Other than the atrial fibrillation with RVR, also hypertension. PAST SURGICAL HISTORY: Ablation x3, cardiac cath, appendectomy and tonsillectomy, adenoidectomy as a child. SOCIAL HISTORY: He is and lives at home with his . No alcohol or drug use. No smoking. ALLERGIES: HOSPITAL LATEX, OTHERWISE, NO KNOWN DRUG ALLERGIES FOR MEDICINES. CURRENT MEDICINES: 1. Aspirin 81 mg a day. 2. Eliquis 5 mg twice a day. 3. Finasteride 5 mg a day. 4. Tamsulosin 0.4 mg twice a day. 5. Amiodarone 100 mg twice a day. 6. Simvastatin 10 mg once a day. REVIEW OF SYSTEMS: Other than what is in the HPI, denies any fever, chills, changes in vision. No trouble chewing or swallowing. Denies any global weakness. Denies any cough. Denies any GI symptoms. No nausea, vomiting, hematochezia, or melena. No diarrhea or constipation. Denies any dysuria or hematuria. Denies any changes in bowel or bladder habits. Denies any acute weakness. No paresthesias or paresis. Denies any auditory or visual hallucinations. Denies any suicidal or homicidal ideation. Denies any symptoms of depression. PHYSICAL EXAMINATION: VITAL SIGNS: Temp 98.4, pulse 80, respirations 16, BP is 121/59. HEENT: Essentially unremarkable. Normocephalic, atraumatic cranium. Wears glasses. Pupils are equal, round, reactive to light and accommodation. Extraocular movements are intact. No mucosal erythema. No injection. No scleral icterus. NECK: Supple. No JVD. No bruits. No thyromegaly. LUNGS: Clear to auscultation bilaterally. No rales, rhonchi, or wheezes. HEART: S1 and S2, currently normal sinus rhythm. No rubs, murmurs, or gallops. ABDOMEN: Soft, nontender, nondistended. No palpable masses. No hepatosplenomegaly. Bowel sounds positive throughout. EXTREMITIES: Good palpable pulses in all four extremities. No cyanosis, clubbing, or edema. NEUROLOGIC: He is grossly intact. Cranial nerves 2 through 12 are equal and symmetrical. No motor or sensory deficits appreciated: LABORATORY DATA: White count 7.0, hemoglobin 13.9, hematocrit 41.9, platelets 288. His chemistries show sodium 138, potassium 4.2, chloride 106, bicarb 24, BUN is 12, creatinine is 1.16, GFR 62, glucose 109, calcium is 9.3, AST is 16, ALT is 12. Troponin 0.02. From the ER, they gave him IV labetalol to bring him down from rapid rate and increased his metoprolol to twice a day. We will see how he does. Plan is to continue that on either discharge quickly or hold for Cardiology evaluation depending how he responds. Job ID: [id number]
--- NOTE | 2019-02-25 04:15 | DIS ---
DATE OF ADMISSION: 02/23/2019 DATE OF DISCHARGE: 02/24/2019 ADMIT DIAGNOSIS: Atrial fibrillation with RVR. DISCHARGE DIAGNOSIS: Atrial fibrillation with RVR, resolved with beta blockers. HOSPITAL COURSE: Mr. Doll is a 73-year-old male, patient of Dr. Landers who was very cognizant of his situation. He had recently seen Dr. Asif, had an ablation 3 weeks ago, that was his 3rd ablation. He states that he has not been on Toprol once a day, recently that was actually stopped several weeks to a month ago and it could be the reason that he rebounded up to a tachycardic rate into the 150s like he was. The hospitalization was very smooth. He had beta blockers re-added to him and was on 50 twice a day, and as of this morning, he has remained without symptoms. He is asymptomatic. No sign of chest pain. No problems with palpitations. His blood pressure this morning is 133/70, his pulse has been 80 to 100 and regular. The patient has appointment already set with Dr. Asif. The patient is asymptomatic and his reason for admission was observation of his heart and his heart is resolved. He has a well known patient of the [facility] and see no evidence of ischemia. We will plan on discharging him to home. We will resume his Toprol at 50 twice a day. We will also keep him on amiodarone as regular home medicines including his Eliquis since he has already been anticoagulated and we will discharge him home. Continue on his regular home medications, but had the metoprolol at 50 twice a day, and we will call Dr. Asif in the morning and follow his direction at that point. Job ID: [id number]
== END 2019-02-24 14:08 | disposition home or self-care (01) ==
LOC: ERS 13:58 → 2SW 15:45
PROVIDERS: ADMIT Family Medicine; ATTEND Family Medicine
DX: I48.91 Unspecified atrial fibrillation (principal); R00.0 Tachycardia, unspecified; I10 Essential (primary) hypertension; Z98.890 Other specified postprocedural states; Z91.040 Latex allergy status; Z79.01 Long term (current) use of anticoagulants; Z79.82 Long term (current) use of aspirin; Z79.899 Other long term (current) drug therapy
CPT/HCPCS: 71045; 80053; 82550; 82565; 83735; 84484 ×2; 85014; 85018; 85025; 85049; 93005; 94760; 96374; 96376; 99285; G0378 ×2; 36415

== ENCOUNTER → 2019-05-17 | Day surgery (SDC) | payer MEDICARE ==
[2019-05-16 12:15] VITALS: BMI 31.4
[~2019-05-17] MED LIST changes: +Lidocaine 1% PF 5 ML VIAL ONE; +PROPOFOL 20 ML ONE; -PROPOFOL 200 MG/20 ML VIAL ONE
[2019-05-17 07:46] LABS: #Basophils 0.1 thou/uL (0.0-0.2); #Eosinphils 0.4 thou/uL (0.0-0.7); #Lymphocytes 1.3 thou/uL (1.20-3.40); #Monocytes 0.5 thou/uL (0.11-0.59); #Neutrophils 3.4 thou/uL (1.40-6.50); %Basophils 0.9 % (0.0-1.0); %Eosinophils 6.4 % (0.0-10.0); %Lymphocytes 22.7 % (21.0-51.0); %Monocytes 9.4 % (0.0-10.0); %Neutrophils 60.5 % (42.0-75.0); Hemoglobin 13.8 g/dL (14.0-18.0); Mean Corpuscular HGB CONC 33.3 g/dL (32.0-36.0); Mean Corpuscular Hemoglobin 30.8 pg (27.0-31.0); Mean Corpuscular Volume 92.5 fL (78.0-98.0); Mean Platelet Volume 7.2 fL (7.4-10.4); Platelet Count 249 thou/uL (130-400); RBC Distribution Width 12.5 % (11.5-14.5); Red Blood Cell (RBC) Count 4.47 mill/uL (4.70-6.10); White Blood Cell (WBC) Count 5.7 thou/uL (4.8-10.8)
[2019-05-17 07:55] LABS: INR-International Normal Ratio 1.4; PTT 35.6 SEC (22.9-36.1); Prothrombin Time 17.3 SEC (12.0-14.7)
[2019-05-17 08:08] LABS: Anion Gap 11 mmol/L (10-20); BUN (Urea Nitrogen) 33 mg/dL (8.4-25.7); Calc. Creatinine Clearance 78 mL/min (70-130); Calcium 9.1 mg/dL (7.8-10.44); Carbon Dioxide 22 mmol/L (23-31); Chloride 109 mmol/L (98-107); Estimated GFR-MDRD 58; Glucose 95 mg/dL (83-110); Sodium 138 mmol/L (136-145)
--- NOTE | 2019-05-17 14:27 | OP ---
DATE OF PROCEDURE: 05/17/2019 PROCEDURE PERFORMED: Electrocardioversion. ADDITIONAL REFERRING PHYSICIAN: Cyndy Carvalho MD REASON FOR PROCEDURE: Mr. Doll is a 73-year-old man with prior history of recurrent atrial arrhythmias. He has underwent repeated left atrial ablations, prior appendage isolation. Most recent redo ablation was 04/30/2019. He is here for a repeat cardioversion, hence, repeat recurrent atrial arrhythmia despite Multaq use. The patient has been on uninterrupted anticoagulation. Continue apixaban. DESCRIPTION OF PROCEDURE: The patient received deep sedation with propofol by Anesthesia specialist. After adequate level of sedation achieved, a synchronized 70-joule shock promptly converted the patient back to sinus rhythm. CONCLUSION: Successful cardioversion. PLAN: Continue monitoring for arrhythmia recurrence. The patient has a followup with Dr. Asif in 2 weeks. Continue Multaq and apixaban as well. Monitor for bradyarrhythmias, hence heart rate is about 50 post cardioversion. Job ID: [id number]
--- NOTE | 2019-05-17 17:12 | EKG ---
Test Reason : PRE CARDIOVERSION Blood Pressure : / mmHG Vent. Rate : 105 BPM Atrial Rate : 127 BPM P-R Int : 000 ms QRS Dur : 102 ms QT Int : 396 ms P-R-T Axes : 000 -06 -08 degrees QTc Int : 523 ms Atrial fibrillation with rapid ventricular response Low voltage QRS Prolonged QT Abnormal ECG When compared with ECG of 23-FEB-2019 14:59, Incomplete right bundle branch block is no longer Present Confirmed by DR. Daniel ABDI ([id number]) on 05/17/2019 5:11:56 PM Referred By: ANGELA Confirmed By:DR. Daniel ABDI
--- NOTE | 2019-05-17 17:13 | EKG ---
Test Reason : S/P CARDIOVERSION Blood Pressure : / mmHG Vent. Rate : 047 BPM Atrial Rate : 047 BPM P-R Int : 238 ms QRS Dur : 106 ms QT Int : 518 ms P-R-T Axes : 073 001 010 degrees QTc Int : 458 ms Sinus bradycardia with 1st degree A-V block Low voltage QRS When compared with ECG of 17-MAY-2019 07:39, (Unconfirmed) Sinus rhythm has replaced Atrial fibrillation Vent. rate has decreased BY 58 BPM QT has shortened Confirmed by DR. Daniel ABDI ([id number]) on 05/17/2019 5:12:48 PM Referred By: [facility] Confirmed By:DR. Daniel ABDI
== END ==
LOC: CCL 06:23
PROVIDERS: ATTEND Internal Medicine Cardiovascular Disease
PROC: 5A2204Z Restoration of Cardiac Rhythm, Single (ICD-10-PCS; principal; 2019-05-17)
DX: I48.0 Paroxysmal atrial fibrillation (principal); I48.4 Atypical atrial flutter; I25.10 Atherosclerotic heart disease of native coronary artery without angina pectoris; I10 Essential (primary) hypertension; M19.90 Unspecified osteoarthritis, unspecified site; Z79.01 Long term (current) use of anticoagulants; Z79.82 Long term (current) use of aspirin; Z79.899 Other long term (current) drug therapy; Z91.040 Latex allergy status; Z98.890 Other specified postprocedural states
CPT/HCPCS: 36415; 80048; 85025; 85610; 85730; 92960; 93005; 93010; J2001; J2704

== ENCOUNTER 2020-07-07 07:45 | Outpatient (CLI) | payer MEDICARE, OTHER ==
[2020-07-07 14:23] LABS: Hemoglobin 14.4 g/dL (14.0-18.0); Mean Corpuscular HGB CONC 32.8 g/dL (32.0-36.0); Mean Corpuscular Volume 94.5 fL (78.0-98.0); Platelet Count 222 thou/uL (130-400); RBC Distribution Width 12.1 % (11.5-14.5); Red Blood Cell (RBC) Count 4.66 mill/uL (4.70-6.10); White Blood Cell (WBC) Count 5.8 thou/uL (4.8-10.8)
[2020-07-07 14:27] LABS: Bacteria/HPF None Seen HPF (None Seen); Bilirubin Negative (Negative); Blood, Urine Negative (Negative); Clarity Clear (Clear); Glucose, Urine (Dipstick) Normal (Negative); Ketone, Urine Negative (Negative); Leukocyte Negative Leu/uL (Negative); Nitrite Negative (Negative); Protein, Urine (Dipstick) Negative (Neg-Trace); RBC/HPF 0-3 HPF (0-3); Specific Gravity, Urine 1.017 (1.002-1.036); Squamous Epithelial 0-3 HPF (0-3); Urobilinogen Normal mg/dL (Less than 2); WBC/HPF 0-3 HPF (0-3); pH, Urine 6.5 (5.0-9.0)
[2020-07-07 14:42] LABS: Anion Gap 16 mmol/L (10-20); BUN (Urea Nitrogen) 26 mg/dL (8.4-25.7); Calc. Creatinine Clearance 0 mL/min (70-130); Carbon Dioxide 21 mmol/L (23-31); Chloride 107 mmol/L (98-107); Estimated GFR-MDRD 70; Glucose 98 mg/dL (83-110); Potassium 4.7 mmol/L (3.5-5.1); Sodium 139 mmol/L (136-145)
[2020-07-07 14:45] LABS: PTT 30.7 sec (22.9-36.1)
[2020-07-08 13:01] LABS: SARS-CoV-2 MS2 Positive; SARS-CoV-2 N Gene Negative; SARS-CoV-2 S Gene Negative; SARS-CoV-2 by NAA Not Detected (NotDetected); SARS-CoV-2 orf1ab Negative
--- NOTE | 2020-07-08 20:53 | EKG ---
Test Reason : Blood Pressure : / mmHG Vent. Rate : 062 BPM Atrial Rate : 062 BPM P-R Int : 256 ms QRS Dur : 102 ms QT Int : 454 ms P-R-T Axes : 068 055 056 degrees QTc Int : 460 ms Sinus rhythm with marked sinus arrhythmia with 1st degree A-V block Low voltage QRS Incomplete right bundle branch block Borderline ECG No previous ECGs available Confirmed by Tabatha BLAIR ([id number]) on 07/08/2020 8:52:53 PM Referred By: JOSE Confirmed By:Tabatha BLAIR
== END 2020-07-07 07:46 | disposition home or self-care (01) ==
LOC: LABBT 07:45
PROVIDERS: ATTEND Urology
DX: Z01.818 Encounter for other preprocedural examination (principal); Z20.828 Contact with and (suspected) exposure to other viral communicable diseases; N40.0 Benign prostatic hyperplasia without lower urinary tract symptoms; I48.0 Paroxysmal atrial fibrillation; N52.03 Combined arterial insufficiency and corporo-venous occlusive erectile dysfunction; N48.6 Induration penis plastica; R31.0 Gross hematuria
CPT/HCPCS: 80048; 81001; 85027; 85610; 85730; 87086; U0003; 87635; 93005; 93010

== ENCOUNTER 2020-07-10 09:12 | Day surgery (SDC) | payer MEDICARE ==
[2020-07-07 12:18] VITALS: BMI 30.4
[2020-07-10] MEDS ORDERED: Levofloxacin 500 mg/D5W 100 ml Premix Bag ONE (10:59)
[2020-07-10] MEDS ORDERED: B & O ONE (11:25)
[2020-07-10] MEDS ORDERED: Fentanyl 100 MCG/2 ML VIAL ONE (11:27)
[2020-07-10] MEDS ORDERED: PROPOFOL 200 MG/20 ML VIAL ONE (11:29)
[2020-07-10] MEDS ORDERED: Lidocaine 1% PF 5 ML VIAL ONE (11:29)
--- NOTE | 2020-07-10 16:58 | OP ---
DATE OF PROCEDURE: 07/10/2020 SERVICES: Urology. PREOPERATIVE DIAGNOSIS: Benign prostatic hypertrophy with urinary symptoms and fossa navicularis stricture. POSTOPERATIVE DIAGNOSIS: Benign prostatic hyperplasia with urinary symptoms and fossa navicularis stricture. PROCEDURE PERFORMED: UroLift with 7 implants with dilation of fossa navicularis stricture using Khurram Sounds. INDICATIONS FOR PROCEDURE: Mr. Doll is a 75-year-old white male with BPH and urinary complaints. He also has a fossa navicularis stricture, which was diagnosed and dilated at his diagnostic cystoscopy. He is being brought to the operating room, as he has elected to proceed with the UroLift procedure because after his dilation, he continued to have urinary difficulties with weak stream. The UroLift was discussed, and he elected to proceed forward after discussion of risks and benefits. DESCRIPTION OF PROCEDURE: After identification of armband and verification of consent, the patient was brought back to the operating room where he underwent total intravenous anesthesia. He was then placed in dorsal lithotomy position and prepped and draped in usual sterile fashion. After appropriate time-out, a lubricated 21-[place] rigid cystoscope was attempted to introduce into the urethra. However , the fossa navicularis stricture had recurred. Using Khurram sounds, the fossa navicularis was dilated sequentially from 8-[place] up to 24-[place] until it was wide open. This allowed the cystoscope to be introduced per urethra into the bladder. The prostate was hypertrophic, had been previously demonstrated on outpatient cystoscopy. The visual obturator was removed, and the UroLift device attached to the cystoscope and into the sheath. Initial implantation was performed on the patient's proximal prostate towards the base by lateral and anterior compression approximately 20 degrees. Once prostate had been adequately compressed and we were far enough away from the bladder neck, the safety was released, and the blue trigger fired to deploy the Nitinol needle. The tension was set along with the capsular tab using the rendon trigger. The UroLift was advanced forward until the white line was in the keyhole and then the urethral end piece deployed using the back blue release. This was then repeated again on the patient's right base of the bladder and then at the apex on the left and right side. This did leave a fairly significant amount of prostate in the midsection that was bulging into the urethral lumen. Additional implants were placed in the left and right side and in the mid prostate. This did create a relatively nice channel, but there was still a little bit of a bulge on the patient's apical area, especially more so on the right than the left. We elected to put one additional implant in on the patient's right apex, which resulted in nice opening and a good anterior channel while there was still a few areas of bulging , none of this appeared to be obstructive or within the way of the urine flow. I felt that this was enough implants to avoid excessive amounts of implantation. The cystoscope was then removed, and an 18-[place] Liriano catheter was passed with ease into the patient's bladder. A 10 mL of sterile water was placed into the balloon. The patient had B and O suppositories placed and was taken out of positioning, awakened, taken to PACU for recovery in stable condition. COMPLICATIONS: None. ESTIMATED BLOOD LOSS: Minimal. RETAINED TUBES AND DRAINS: 18-[place] Liriano catheter to gravity drainage. SPECIMENS: None. IMPLANTS USED: Seven. DISPOSITION: The patient will keep his catheter in for 1 week. We will then plan to see him back for a voiding trial; at that time where hopefully, his fossa navicular stricture will remain patent. His followup will be handled thereafter. Job ID: [id number]
== END 2020-07-10 14:39 | disposition home or self-care (01) ==
LOC: SDC 09:12
PROVIDERS: ATTEND Urology
PROC: 0T7D8DZ Dilation of Urethra with Intraluminal Device, Via Natural or Artificial Opening Endoscopic (ICD-10-PCS; principal; 2020-07-10)
PROC: 0T7D8ZZ Dilation of Urethra, Via Natural or Artificial Opening Endoscopic (ICD-10-PCS; 2020-07-10)
DX: N40.1 Benign prostatic hyperplasia with lower urinary tract symptoms (principal); R39.12 Poor urinary stream; N35.914 Unspecified anterior urethral stricture, male; I25.10 Atherosclerotic heart disease of native coronary artery without angina pectoris; I10 Essential (primary) hypertension; M50.90 Cervical disc disorder, unspecified, unspecified cervical region; Z79.82 Long term (current) use of aspirin; Z79.899 Other long term (current) drug therapy; Z91.048 Other nonmedicinal substance allergy status
CPT/HCPCS: C1889; C9740; J1956; J2704; J3010

== ENCOUNTER 2023-01-23 11:35 | Outpatient (CLI) | payer MEDICARE ==
[2023-01-23 12:40] LABS: #Eosinphils 0.2 10x3/uL (0.0-0.5); #Monocytes 0.6 10x3/uL (0.0-1.1); #Neutrophils 4.2 10x3/uL (1.5-8.4); %Basophils 0.6 % (0.0-2.0); %Eosinophils 3.5 % (0.0-6.0); %Lymphocytes 18.6 % (18.0-47.0); %Monocytes 9.9 % (0.0-10.0); %Neutrophils 66.9 % (40.0-75.0); Hemoglobin 14.3 g/dL (13.5-17.5); Mean Corpuscular Volume 90.8 fl (81.2-95.1); Mean Platelet Volume 9.5 fl (7.4-10.4); Platelet Count 270 10x3/uL (150-450); RBC Distribution Width 13.2 % (11.5-14.5); Red Blood Cell (RBC) Count 4.77 10x6/uL (4.32-5.72); White Blood Cell (WBC) Count 6.3 10x3/uL (3.5-10.5)
[2023-01-23 13:29] LABS: INR-International Normal Ratio 0.9; Prothrombin Time 10.3 sec (9.5-12.1)
[2023-01-23 13:34] LABS: Anion Gap 15 mmol/L (10-20); BUN (Urea Nitrogen) 22 mg/dL (8.4-25.7); Calc. Creatinine Clearance 0 mL/min (70-130); Calcium 9.5 mg/dL (7.8-10.44); Carbon Dioxide 25 mmol/L (23-31); Chloride 105 mmol/L (98-107); Estimated GFR 82; Glucose 100 mg/dL (83-110); Potassium 4.5 mmol/L (3.5-5.1); Sodium 140 mmol/L (136-145)
== END 2023-01-23 11:36 | disposition home or self-care (01) ==
LOC: LABBT 11:35
PROVIDERS: ATTEND Orthopaedic Surgery
DX: Z01.812 Encounter for preprocedural laboratory examination (principal); M19.012 Primary osteoarthritis, left shoulder
CPT/HCPCS: 80048; 85025; 85610

== ENCOUNTER 2023-01-26 07:36 | Observation (INO) | payer MEDICARE ==
[2023-01-26] MEDS ORDERED: FENTANYL 50 MCG/ML 1 ML VIAL ONE (08:51)
[2023-01-26] MEDS ORDERED: Lidocaine 1% (PF) 30 ML VIAL ONE (08:51)
[2023-01-26] MEDS ORDERED: Midazolam HCl 2 mg/2 ml Vial ONE (08:51)
[2023-01-26] MEDS ORDERED: Ropivacaine 0.5% HCl/PF (150 MG/30 ML VIAL) ONE (08:51)
[2023-01-26] MEDS ORDERED: Ropivacaine 0.2% HCl/PF 20 ML ONE (08:51)
[2023-01-26] MEDS ORDERED: Vancomycin (BATCH) 1.5 GRAM/300 ML BAG ONE (09:41)
[2023-01-26] MEDS ORDERED: Sodium Chloride 0.9% 100 ML ONE ×2 (09:41→10:53)
[2023-01-26] MEDS ORDERED: Tranexamic Acid 1,000 MG/10 ML VIAL ONE (09:41)
[2023-01-26] MEDS ORDERED: CEFAZOLIN 2 GM VIAL ONE (10:53)
[2023-01-26] MEDS ORDERED: Fentanyl 250 MCG/5 ML VIAL ONE (11:02)
[2023-01-26] MEDS ORDERED: FENTANYL 50 MCG/ML 1 ML VIAL SLOW IVP PRN (11:02)
[2023-01-26] MEDS ORDERED: SUGAMMADEX SODIUM 200 MG/2 ML VIAL ONE (11:02)
[2023-01-26] MEDS ORDERED: PROPOFOL 200 MG/20 ML VIAL ONE (11:13)
[2023-01-26] MEDS ORDERED: Rocuronium Bromide 10 MG/ML (10ML VIAL) ONE (11:13)
[2023-01-26] MEDS ORDERED: Ondansetron PF 4 MG/2 ML Vial ONE (11:13)
[2023-01-26] MEDS ORDERED: Lidocaine 1% PF 5 ML VIAL ONE (11:13)
[2023-01-26] MEDS ORDERED: Dexamethasone 20 MG/5 ML VIAL ONE (11:13)
[2023-01-26] MEDS ORDERED: Promethazine HCl 25 MG/ML VIAL IM PRN (11:15)
[2023-01-26] MEDS ORDERED: Ropivacaine 0.2% 550 ML 550 ML NERVE BLCK SCH (11:15)
[2023-01-26] MEDS ORDERED: traMADol HCl 50 MG TAB PO PRN ×2 (11:15)
[2023-01-26] MEDS ORDERED: Zolpidem Tartrate 5 MG TAB PO PRN (11:15)
[2023-01-26] MEDS ORDERED: Ondansetron PF 4 MG/2 ML Vial IVP PRN (11:15)
[2023-01-26] MEDS ORDERED: HYDROcodone/Acetaminophen 10/325 mg Tablet PO PRN ×2 (11:15)
[2023-01-26 15:05] VITALS: BMI 30.5
[2023-01-26] MEDS ORDERED: Methocarbamol 500 MG TAB PO PRN (15:31)
[2023-01-26] MEDS ORDERED: Milk Of Magnesia 30 ML UDCUP PO PRN (15:31)
[2023-01-26] MEDS ORDERED: Bisacodyl 10 MG SUPP PR PRN (15:31)
[2023-01-26] MEDS ORDERED: diphenhydrAMINE 50 MG CAP PO PRN (15:31)
[2023-01-26] MEDS ORDERED: Acetaminophen 325 MG TAB PO PRN (15:31)
[2023-01-26] MEDS: Ketorolac Tromethamine 30 MG/ML VIAL IVP SCH ×2 (15:48→17:13)
[2023-01-26] MEDS: Dextrose 5 %-0.45 % NaCl 1,000 ML IV SCH (16:21)
[2023-01-26] MEDS: Famotidine 20 MG TAB PO SCH (22:14)
[2023-01-26] MEDS: CEFAZOLIN 2 GM in Sodium Chloride 0.9% 100 ML IVPB SCH (22:14)
[2023-01-27] MEDS: Ketorolac Tromethamine 30 MG/ML VIAL IVP SCH ×2 (00:05→06:00)
[2023-01-27] MEDS: CEFAZOLIN 2 GM in Sodium Chloride 0.9% 100 ML IVPB SCH (04:32)
[2023-01-27 07:54] VITALS: BP 121/69; TEMP 98.5
[2023-01-27] MEDS: Dextrose 5 %-0.45 % NaCl 1,000 ML IV SCH (08:20)
[2023-01-27] MEDS: Famotidine 20 MG TAB PO SCH (08:20)
== END 2023-01-27 11:09 | disposition home or self-care (01) ==
LOC: SDC 07:36 → SURG A 14:00 → SDC 15:00 → SURG A 15:30
PROVIDERS: ADMIT Orthopaedic Surgery; ATTEND Orthopaedic Surgery
PROC: 0RRK0JZ Replacement of Left Shoulder Joint with Synthetic Substitute, Open Approach (ICD-10-PCS; principal; 2023-01-26)
PROC: 0LS40ZZ Reposition Left Upper Arm Tendon, Open Approach (ICD-10-PCS; 2023-01-26)
DX: M19.012 Primary osteoarthritis, left shoulder (principal); M67.814 Other specified disorders of tendon, left shoulder; E78.5 Hyperlipidemia, unspecified; I10 Essential (primary) hypertension; I25.10 Atherosclerotic heart disease of native coronary artery without angina pectoris; N40.0 Benign prostatic hyperplasia without lower urinary tract symptoms; Z79.82 Long term (current) use of aspirin; Z79.899 Other long term (current) drug therapy; Z91.048 Other nonmedicinal substance allergy status; Z96.611 Presence of right artificial shoulder joint
CPT/HCPCS: 23430; 23472; 97116 ×2; 97530; A4306; C1713 ×2; C1776 ×2; J3010; J3370; 96374; 96375; 96376; G0378; J1100; J1885; J2001; J2250; J2405; J2704; J2795; J3490; J7042